=== PATIENT | female | born 1990 | race Caucasian/White ===

== ENCOUNTER 2019-04-06 09:03 | Outpatient (CLI) | payer OTHER, BC | END 2019-04-06 13:25 | disposition home or self-care (01) | LOC: OBT 09:03 → L-D 09:03 → OBT 13:25 | DX: O26.853 Spotting complicating pregnancy, third trimester (principal); Z3A.38 38 weeks gestation of pregnancy | CPT/HCPCS: 76818 ==

== ENCOUNTER 2019-04-06 23:10 | Inpatient (IN) | payer OTHER ==
[2019-04-07] MEDS: LACTATED RINGER'S 1,000 ML IV ×8 (00:45→23:55)
[2019-04-07] MEDS ORDERED: OXYTOCIN 30 UNITS/LR 500 ML IV ×2 (01:00→09:30)
[2019-04-07] MEDS ORDERED: BUTORPHANOL 2 MG INJ IV (01:00)
[2019-04-07] MEDS ORDERED: LIDOCAINE 1% (MPF) 30 ML INJ INJ (01:00)
[2019-04-07] MEDS ORDERED: CARBOPROST 250 MCG INJ IM ×2 (01:00→09:30)
[2019-04-07] MEDS ORDERED: MISOPROSTOL 200 MCG TAB PR ×2 (01:00→09:30)
[2019-04-07] MEDS ORDERED: METHYLERGONOVINE 0.2 MG INJ IM (01:00)
[2019-04-07 01:12] LABS: ADD MAN DIFF? NO
[2019-04-07 01:19] LABS: WHITE BLOOD COUNT 14.3 10^3/ul (4.8-10.8)
[2019-04-07 01:19] LABS: ABNORMAL IP MESSAGE 1; BASOPHIL # 0.1 10^3/ul (0.0-0.1); BASOPHILS % 0.5 % (0.0-2.0); EOSINOPHILS # 0.1 10^3/ul (0.0-0.5); EOSINOPHILS % 0.6 % (0.0-7.0); HEMATOCRIT 27.8 % (37.0-47.0); HEMOGLOBIN 7.5 g/dl (12.0-16.0); LYMPHOCYTES # 2.3 10^3/ul (0.8-2.9); LYMPHOCYTES % 15.9 % (15.0-51.0); MEAN CORPUSCULAR HEMOGLOBIN 18.5 pg (29.0-33.0); MEAN CORPUSCULAR VOLUME 68.5 fl (82.0-101.0); MEAN PLATELET VOLUME 9.8 fl (7.4-10.4); MONOCYTE # 0.9 10^3/ul (0.3-0.9); MONOCYTES % 6.3 % (0.0-11.0); NEUTROPHIL # 10.8 10^3/ul (1.6-7.5); NEUTROPHILS % 75.7 % (39.0-77.0); NUCLEATED RED BLOOD CELLS # 0.1 10^3/ul (0.0-0.0); NUCLEATED RED BLOOD CELLS% 0.6 /100WBC (0.0-0.0); PLATELET COUNT 231 10^3/UL (140-415); RED BLOOD COUNT 4.06 10^6/ul (4.20-5.40); RED CELL DISTRIBUTION WIDTH 20.6 % (11.5-14.5)
[2019-04-07 01:24] LABS: ADD UMIC YES; UR ASCORBIC ACID NEGATIVE (NEGATIVE); UR BILIRUBIN (Dip) NEGATIVE (NEGATIVE); UR BLOOD (Dip) 2+ mg/dL (NEGATIVE); UR CLARITY SLIGHTLY CLOUDY (CLEAR); UR COLOR YELLOW (YELLOW); UR GLUCOSE (Dip) NEGATIVE (NEGATIVE); UR KETONES (Dip) 1+ mg/dL (NEGATIVE); UR LEUKOCYTE ESTERASE (Dip) NEGATIVE Leu/ul (NEGATIVE); UR MUCUS FEW /HPF (NONE SEEN); UR NITRITE (Dip) NEGATIVE (NEGATIVE); UR RBC 0 /HPF (0-5); UR SPECIFIC GRAVITY (Dip) 1.029 (1.003-1.030); UR TOTAL PROTEIN (Dip) NEGATIVE (NEGATIVE); UR UROBILINOGEN (Dip) 2+ mg/dL (NEGATIVE); UR WBC 1 /HPF (0-5)
[2019-04-07] MEDS ORDERED: LACTATED RINGER'S 1,000 ML IV (01:29)
[2019-04-07 01:39] LABS: INR 0.92; PROTIME 12.5 Sec (11.9-14.9)
[2019-04-07 01:40] LABS: PARTIAL THROMBOPLASTIN TIME 27.5 Sec (23.0-35.0)
[2019-04-07 01:42] LABS: POSITIVE DIFF @See below
[2019-04-07 02:09] LABS: HEPATITIS B SURFACE ANTIGEN NEGATIVE (NEGATIVE)
[2019-04-07] MEDS ORDERED: FENTAnyl 2MCG/ML-ROPIV 0.2% 100 ML (02:21)
[2019-04-07] MEDS ORDERED: FENTAnyl 2MCG/ML-ROPIV 0.2% 100 ML BAG EPI (03:00)
[2019-04-07] MEDS ORDERED: EPHEDrine 25 MG/5 ML SYG IV (03:00)
[2019-04-07] MEDS ORDERED: NALOXONE (0.4 MG/ML) INJ IV ×2 (03:00)
[2019-04-07] MEDS: OXYTOCIN 30 UNITS/LR 500 ML IV ×2 (08:22→08:38)
[2019-04-07] MEDS: IBUPROFEN 600 MG TAB PO ×4 (08:38→23:39)
[2019-04-07] MEDS ORDERED: NA PHOSPHATE/BIPHOS 133 ML ENEMA PR (09:30)
[2019-04-07] MEDS ORDERED: DIBUCAINE 1% 30 GM OINT TOP (09:30)
[2019-04-07] MEDS ORDERED: ONDANSETRON 4 MG TAB PO (09:30)
[2019-04-07] MEDS ORDERED: DIPHENHYDRAMINE 25 MG CAP PO (09:30)
[2019-04-07] MEDS ORDERED: HYDROCODONE/APAP (5/325) TAB PO ×2 (09:30)
[2019-04-07] MEDS ORDERED: ONDANSETRON 4 MG INJ IV (09:30)
[2019-04-07] MEDS ORDERED: DIPHENHYDRAMINE 50 MG INJ IV (09:30)
[2019-04-07] MEDS: MAGNESIUM HYDROXIDE 30ML CUP PO (12:42)
[2019-04-07] MEDS: SENNA/DOCUSATE NA (8.6MG/50MG) TAB PO ×2 (12:43→20:57)
[2019-04-07] MEDS: BENZOCAINE 20% 56 ML SPRAY TOP (12:43)
[2019-04-07] MEDS: WITCH HAZEL/GLYCERIN PAD PR (12:43)
[2019-04-07] MEDS: LANOLIN HPA 1 PKT TOP (12:43)
[2019-04-07] MEDS: LACTATED RINGER'S 1,000 ML IV* ×2 (12:44→17:02)
[2019-04-07 15:57] LABS: RAPID PLASMA REAGIN NONREACTIVE (NR)
[2019-04-08] MEDS: LACTATED RINGER'S 1,000 ML IV (00:47)
[2019-04-08] MEDS: LACTATED RINGER'S 1,000 ML IV* ×2 (01:02→09:02)
[2019-04-08] MEDS: IBUPROFEN 600 MG TAB PO ×4 (06:00→23:46)
[2019-04-08 08:19] LABS: ADD MAN DIFF? NO
[2019-04-08 08:27] LABS: ABNORMAL IP MESSAGE 1; BASOPHIL # 0.1 10^3/ul (0.0-0.1); BASOPHILS % 0.6 % (0.0-2.0); EOSINOPHILS # 0.3 10^3/ul (0.0-0.5); EOSINOPHILS % 1.9 % (0.0-7.0); HEMATOCRIT 24.1 % (37.0-47.0); LYMPHOCYTES # 3.7 10^3/ul (0.8-2.9); LYMPHOCYTES % 21.2 % (15.0-51.0); MEAN CORPUSCULAR HEMOGLOBIN 18.8 pg (29.0-33.0); MEAN CORPUSCULAR HGB CONC 28.2 g/dl (32.0-37.0); MEAN CORPUSCULAR VOLUME 66.6 fl (82.0-101.0); MEAN PLATELET VOLUME 9.7 fl (7.4-10.4); MONOCYTE # 1.1 10^3/ul (0.3-0.9); NEUTROPHIL # 12.1 10^3/ul (1.6-7.5); NEUTROPHILS % 68.8 % (39.0-77.0); NUCLEATED RED BLOOD CELLS # 0.1 10^3/ul (0.0-0.0); NUCLEATED RED BLOOD CELLS% 0.3 /100WBC (0.0-0.0); PLATELET COUNT 180 10^3/UL (140-415); RED BLOOD COUNT 3.62 10^6/ul (4.20-5.40); RED CELL DISTRIBUTION WIDTH 20.5 % (11.5-14.5)
[2019-04-08 08:27] LABS: WHITE BLOOD COUNT 17.5 10^3/ul (4.8-10.8)
[2019-04-08 08:30] LABS: HEMOGLOBIN 6.8 g/dl (12.0-16.0); POSITIVE DIFF @See below
[2019-04-08] MEDS: SENNA/DOCUSATE NA (8.6MG/50MG) TAB PO ×2 (09:33→21:00)
[2019-04-08] MEDS: FERROUS SULFATE (EC) 325 MG TAB PO ×3 (09:33→20:35)
[2019-04-08] MEDS: LANOLIN HPA 1 PKT TOP (09:33)
[2019-04-09] MEDS: IBUPROFEN 600 MG TAB PO ×2 (05:40→12:26)
[2019-04-09] MEDS: VARICELLA VACCINE LIVE/PF 1,350 UNIT/0.5 ML ML SC* (09:00)
[2019-04-09] MEDS: MEASLES,MUMPS,RUBELLA VACCINE INJ SC* (09:00)
[2019-04-09] MEDS: FERROUS SULFATE (EC) 325 MG TAB PO ×2 (10:10→12:26)
[2019-04-09] MEDS: SENNA/DOCUSATE NA (8.6MG/50MG) TAB PO (10:10)
== END 2019-04-09 13:00 | disposition home or self-care (01) | DRG 807 ==
LOC: OBT 23:49 → L-D 23:49 → PP1 04-07 10:07
PROVIDERS: Specialist
PROC: 10E0XZZ Delivery of Products of Conception, External Approach (ICD-10-PCS; principal; 2019-04-07)
DX: O80 Encounter for full-term uncomplicated delivery (principal); Z37.0 Single live birth; Z3A.38 38 weeks gestation of pregnancy
CPT/HCPCS: 81001; 85025; 85610; 85730; 86592; 86850; 86900; 86901; 87340; 90716